=== PATIENT | female | born 1995 | race Two or more races ===

== ENCOUNTER 2018-03-14 21:24 | Emergency (ER) | payer SELFPAY ==
[~2018-03-14] VITALS: Ht 175.3 cm; Wt 54.4 kg
[2018-03-14 21:30] VITALS: BP 107/67
--- NOTE | 2018-03-14 22:09 | Emergency Room Report ---
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 She did not bring any paperwork with her. She does report that for the last few days been having double vision as well as left arm numbness tingling. She went to the eye doctor because of the vision complaint. She denies any numbness otherwise, denies any focal weakness denies any slurred speech, denies headache , denies traumatic injuries. She reports she has no medical problems, never had any surgeries, has no drug allergies, is not on any medications, and does not use any drugs, but does smoke and drink occasionally but not recently. Allergies: Coded Allergies: No Known Allergies (Unverified , 03/14/18) Patient History Past Medical History: see triage record Last Menstrual Period: 01/2018 Now: No Reviewed Nursing Documentation: PMH: Agreed; PSxH: Agreed Nursing Documentation-PMH Past Medical History: No Stated History Review of Systems All Other Systems: negative except mentioned in HPI Physical Exam Vital Signs Date Time Temp Pulse Resp B/P (MAP) Pulse Ox O2 Delivery O2 Flow Rate FiO2 03/14/18 21:25 98.1 80 16 107/67 97 Room Air 98.1 Sp02 EP Interpretation: reviewed, normal General Appearance: no apparent distress, alert, non-toxic Head: normocephalic Eyes: bilateral eye normal inspection, bilateral eye PERRL, bilateral eye EOMI ENT: normal ENT inspection, hearing grossly normal, normal pharynx, no angioedema, normal voice, moist mucus membranes Neck: normal inspection, full range of motion, supple, supple/symm/no masses Respiratory: chest non-tender, lungs clear, normal breath sounds, chest symmetrical, palpation of chest normal Cardiovascular #1: normal peripheral pulses, regular rate, rhythm Cardiovascular #2: 2+ radial (R), 2+ radial (L) Gastrointestinal: normal inspection, non tender, soft, no mass, no guarding, no rebound Rectal: deferred Genitourinary: normal inspection, no CVA tenderness Musculoskeletal: back normal, gait/station normal, normal range of motion, non- tender, no calf tenderness Neurologic: alert, oriented x3, responsive, 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 I d/w patient, she is calm, remains neuro intact, I have ordered 10mg IV decadron and cbc, cmp. Will Tx to higher level of care. Rhythm Strip Diag. Results Rhythm Strip Time: 22:35 EP Interpretation: yes Rate: 85 Rhythm: NSR, no PVC's, no ectopy CT/MRI/US Diagnostic Results CT/MRI/US Diagnostic Results : Imaging Test Ordered: ct head noncontrast Impression large R sided mass, likely AVM Last Vital Signs Date Time Temp Pulse Resp B/P (MAP) Pulse Ox O2 Delivery O2 Flow Rate FiO2 03/14/18 21:30 98.1 80 16 107/67 97 Room Air 98.1 Disposition: XFER SHT-TRM HOSP Condition: Stable Signed Out To: [facility] Neurology Dr. Kelly accepting BRICE PA M.D Mar 14, 2018 22:09
[2018-03-14] MEDS ORDERED: Dexamethasone 4mg/ml vial IVP ONE (22:30)
[2018-03-14 22:58] LABS: BASOPHILS % (AUTO) 1.3 % (0.0-2.0); EOSINOPHILS % (AUTO) 1.2 % (0.0-3.0); HEMATOCRIT 39.5 % (37.0-47.0); HEMOGLOBIN 13.2 G/DL (12.0-16.0); LYMPHOCYTES % (AUTO) 41.2 % (20.0-45.0); MEAN CORPUSCULAR VOLUME 90 FL (80-99); MONOCYTES % (AUTO) 4.6 % (1.0-10.0); NEUTROPHILS % (AUTO) 51.7 % (45.0-75.0); PLATELET COUNT 220 K/UL (150-450); RED BLOOD COUNT 4.38 M/UL (4.20-5.40); RED CELL DISTRIBUTION WIDTH 11.3 % (11.6-14.8); WHITE BLOOD COUNT 7.6 K/UL (4.8-10.8)
[2018-03-14 23:00] LABS: ANION GAP 9 mmol/L (5-15); BLOOD UREA NITROGEN 11 mg/dL (7-18); CALCIUM 9.2 MG/DL (8.5-10.1); CARBON DIOXIDE 29 MMOL/L (21-32); CHLORIDE 104 MMOL/L (98-107); CREATININE 0.8 MG/DL (0.55-1.30); POTASSIUM 3.7 MMOL/L (3.5-5.1); SODIUM 142 MMOL/L (136-145)
[2018-03-14 23:05] LABS: ALANINE AMINOTRANSFERASE 18 U/L (12-78); ALBUMIN/GLOBULIN RATIO 1.1 (1.0-2.7); ALKALINE PHOSPHATASE 40 U/L (46-116); ASPARTATE AMINO TRANSFERASE 10 U/L (15-37); BILIRUBIN,TOTAL 0.9 MG/DL (0.2-1.0)
[2018-03-14 23:29] VITALS: BP 102/59
--- NOTE | 2018-03-15 09:17 | Diagnostic Imaging Report ---
Indications: Blurred vision x3 days Technique: Spiral acquisitions obtained through the brain. Angled axial and coronal 5 x 5 mm slices were reconstructed. Total dose length product 1309.23 mGycm. CTDI vol(s) 70.38 mGy. Dose reduction achieved using automated exposure control Comparison: None. Findings: There is a mass seen within the right basal ganglia region and extending into the posterior temporal deep white matter inferiorly and into the frontoparietal deep white matter superiorly. This measures 6.3 x 5.5 x 6 cm. There is surrounding vasogenic edema. There is mass effect, with obliteration of the mid body of the right lateral ventricle, 13 mm of [id number] midline shift. There is hydrocephalus of the lateral ventricles otherwise, presumably due to compression of the foramen of [place]. There is surrounding vasogenic edema. The mass is isoattenuating to slightly hyperattenuating as compared to marcial matter, and demonstrates extensive calcification. No acute hemorrhage. The calvarium is intact. Visualized orbits and sinuses are unremarkable. Impression: 6.3 x 5.5 x 6 cm intra-axial mass centered in the right basal ganglia, extending into the temporal and parietal lobes, resulting in considerable mass effect, surrounding vasogenic edema,, hydrocephalus and 11 mm right to left midline shift. 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 No acute intracranial bleed This agrees with the preliminary interpretation provided overnight by [facility] telerad[facility] service. The CT scanner at [facility] is accredited by the [employer] and the scans are performed using protocols designed to limit radiation exposure to as low as reasonably achievable to attain images of sufficient resolution adequate for diagnostic evaluation.
== END 2018-03-14 23:43 | disposition short-term general hospital (02) ==
LOC: EMR 21:52
DX: G93.9 Disorder of brain, unspecified (principal); H54.7 Unspecified visual loss
CPT/HCPCS: 36415; 70450; 80053; 85025; 96374; 99284; J1100